=== PATIENT | male | born 1995 | race African-American/Black ===

== ENCOUNTER 2023-06-25 16:25 | Emergency (ER) | payer MEDICAID ==
[~2023-06-25] VITALS: Ht 177.8 cm; Wt 73.0 kg
[2023-06-25 16:36] VITALS: BP 126/82; PULSE 104; RESP 18; TEMP 98.2; O2SAT 98
[2023-06-25] MEDS ORDERED: NAPR-1176 MT (19:27)
[2023-06-25] MEDS ORDERED: KETOROLAC 30MG/ML VIAL IM ONE (19:30)
[2023-06-25] MEDS: KETOROLAC 30MG/ML VIAL IM NR (20:15)
== END 2023-06-25 22:50 | disposition home or self-care (01) ==
LOC: ER 16:25
DX: M79.642 Pain in left hand (principal); Y08.89XA Assault by other specified means, initial encounter; Y93.89 Activity, other specified; Y92.89 Other specified places as the place of occurrence of the external cause; Y99.8 Other external cause status
CPT/HCPCS: 99283; 73130; 29125; 96372; J1885